=== PATIENT | female | born 1990 | race Caucasian/White ===

== ENCOUNTER 2018-05-01 09:20 | Outpatient (CLI) | payer OTHER ==
[2018-05-01 12:53] LABS: BASOPHILS % (AUTO) 0.4 %; EOSINOPHILS # (AUTO) 0.1 10^3/uL (0.0-0.7); EOSINOPHILS % (AUTO) 1.1 %; HGB - HEMOGLOBIN 13.2 g/dL (12.0-16.0); LYMPHOCYTES # (AUTO) 1.6 10^3/uL (1.5-3.5); LYMPHOCYTES % (AUTO) 22.1 %; MEAN CORPUSCULAR HEMOGLOBIN 31.3 pg (27.0-31.0); MEAN CORPUSCULAR HGB CONC 33.7 g/dL (32.0-36.0); MEAN CORPUSCULAR VOLUME 92.7 fL (81.0-99.0); MEAN PLATELET VOLUME 9.7 fL (7.9-10.8); MONOCYTES # (AUTO) 0.5 10^3/uL (0.0-1.0); MONOCYTES % (AUTO) 6.8 %; NEUTROPHILS # (AUTO) 4.9 10^3/uL (1.5-6.6); NEUTROPHILS % (AUTO) 69.6 %; PLT - PLATELET COUNT 214 10^3/uL (130-450); RED BLOOD COUNT 4.22 10^6/uL (4.20-5.40); RED CELL DISTRIBUTION WIDTH 12.3 % (12.0-15.0); WHITE BLOOD COUNT 7.1 x10^3/uL (4.8-10.8)
[2018-05-01 13:30] LABS: ALBUMIN 4.2 g/dL (3.2-5.5); ALBUMIN/GLOBULIN RATIO 1.4 (1.0-2.2); BILIRUBIN,TOTAL 0.5 mg/dL (0.2-1.0); CALCIUM 9.1 mg/dL (8.5-10.3); CREATININE 0.5 mg/dL (0.4-1.0); MAGNESIUM 1.9 mg/dL (1.7-2.8); PHOSPHORUS 3.7 mg/dL (2.5-4.6); TOTAL PROTEIN 7.2 g/dL (6.7-8.2)
[2018-05-01 13:34] LABS: HB2 TOTAL 14.3 g/dL; HEMOGLOBIN A1C 0.4 g/dL; HEMOGLOBIN A1C % 4.7 % (4.6-6.2)
[2018-05-01 13:39] LABS: THYROID STIMULATING HORMONE 2.07 uIU/mL (0.34-5.60)
[2018-05-01 13:50] LABS: FOLATE 12.95 ng/mL (5.90 - >24.8)
== END 2018-05-01 23:59 ==
LOC: LAB.WCP 09:20
PROVIDERS: ATTEND Physician Assistant
DX: R53.83 Other fatigue (principal); R00.2 Palpitations; Z83.3 Family history of diabetes mellitus
CPT/HCPCS: 36415; 80053; 82607; 82746; 83036; 83735; 84100; 84443; 85025

== ENCOUNTER 2018-06-28 00:15 | Emergency (ER) | payer OTHER ==
[2018-06-28] MEDS ORDERED: ONDANSETRON 4 MG/2 ML VIAL IVP STA (00:32)
[2018-06-28 00:50] LABS: BASOPHILS % (AUTO) 0.1 %; EOSINOPHILS # (AUTO) 0.1 10^3/uL (0.0-0.7); EOSINOPHILS % (AUTO) 1.2 %; HGB - HEMOGLOBIN 13.4 g/dL (12.0-16.0); LYMPHOCYTES % (AUTO) 28.2 %; MEAN CORPUSCULAR HEMOGLOBIN 31.6 pg (27.0-31.0); MEAN CORPUSCULAR HGB CONC 34.5 g/dL (32.0-36.0); MEAN CORPUSCULAR VOLUME 91.5 fL (81.0-99.0); MEAN PLATELET VOLUME 8.3 fL (7.9-10.8); MONOCYTES # (AUTO) 0.6 10^3/uL (0.0-1.0); MONOCYTES % (AUTO) 8.4 %; NEUTROPHILS # (AUTO) 4.4 10^3/uL (1.5-6.6); NEUTROPHILS % (AUTO) 62.1 %; PLT - PLATELET COUNT 191 10^3/uL (130-450); RED BLOOD COUNT 4.26 10^6/uL (4.20-5.40); RED CELL DISTRIBUTION WIDTH 12.7 % (12.0-15.0); WHITE BLOOD COUNT 7.1 x10^3/uL (4.8-10.8)
[2018-06-28 01:02] LABS: ALBUMIN 4.2 g/dL (3.2-5.5); ALBUMIN/GLOBULIN RATIO 1.4 (1.0-2.2); BILIRUBIN,TOTAL 0.5 mg/dL (0.2-1.0); CALCIUM 8.9 mg/dL (8.5-10.3); CREATININE 0.4 mg/dL (0.4-1.0); TOTAL PROTEIN 7.2 g/dL (6.7-8.2)
[2018-06-28 01:09] LABS: BILIRUBIN,URINE NEGATIVE (NEGATIVE); GLUCOSE, URINE (UA) NEGATIVE (NEGATIVE); KETONES,URINE (UA) NEGATIVE (NEGATIVE); LEUKOCYTE ESTERASE, URINE NEGATIVE (NEGATIVE); NITRITE,URINE NEGATIVE (NEGATIVE); OCCULT BLOOD,URINE NEGATIVE (NEGATIVE); PH,URINE 7.5 PH (5.0-7.5); PROTEIN,URINE NEGATIVE (NEGATIVE); UROBILINOGEN,URINE 0.2 (NORMAL) E.U./dL (NORMAL)
[2018-06-28] MEDS ORDERED: HYDROmorphone 2 MG/ML VIAL IVP STA (01:09)
--- NOTE | 2018-06-28 01:10 | ED Physician Documentation ---
PD HPI ABD PAIN - Stated complaint Stated Complaint: ABDOMINAL PAIN - Chief complaint Chief Complaint: Abd Pain - History obtained from History obtained from: Patient, Family - History of Present Illness Timing - onset: Today Timing - details: Abrupt onset, Still present Quality: Aching, Sharp Location: RUQ Worsened by: Eating, Palpation Associated symptoms: No: Fever, Nausea, Vomiting, Diarrhea, Constipation Similar symptoms before: No diagnosis Recently seen: Not recently seen - Additional information Additional information: Patient is a 27 year old female presenting to the emergency department for abdominal pain. patient states that she has had intermittent right upper quadrant pain for the last year, starting during but was never diagnosed with anything. patient states that tonight after eating she developed right upper quadrant pain. patient states that she had been eating healthy but this last week allowed herself to have junk food and tonight had slovak take out for dinner. Review of Systems Ten Systems: 10 systems reviewed and negative Constitutional: denies: Fever, Chills GI: reports: Abdominal Pain, Nausea. 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: No - Immunizations Immunizations are current?: Yes PD ED PE NORMAL - Vitals Vital signs reviewed: Yes - General General: Alert and oriented X 3, Well developed/nourished - HEENT HEENT: Atraumatic - Cardiac Cardiac: RRR - Respiratory Respiratory: No respiratory distress - Abdomen Abdomen: Soft - Derm Derm: Normal color, Warm and dry - Extremities Extremities: No deformity - Neuro Neuro: Alert and oriented X 3 Eye Opening: Spontaneous PD ED PE EXPANDED - General General: Alert, In Pain - Abdomen Abdomen: Tender to palpation, RUQ. No: Rebound, Guarding Results - Vitals Vitals: Vital Signs - 24 hr 06/28/18 06/28/18 00:20 01:16 Temperature 36.2 C L Heart Rate 83 75 Respiratory 20 18 Rate Blood Pressure 148/93 H 142/91 H O2 Saturation 100 98 Oxygen O2 Source Room air - Labs Labs: Laboratory Tests 06/28/18 06/28/18 06/28/18 00:35 00:35 01:05 WBC 7.1 RBC 4.26 Hgb 13.4 Hct 39.0 MCV 91.5 MCH 31.6 H MCHC 34.5 RDW 12.7 Plt Count 191 MPV 8.3 Neut # (Auto) 4.4 Lymph # (Auto) 2.0 [place] # (Auto) 0.6 Eos # (Auto) 0.1 Baso # (Auto) 0.0 Absolute Nucleated RBC 0.00 Nucleated RBC % 0.0 Sodium 139 Potassium 3.5 Chloride 105 Carbon Dioxide 25 Anion Gap 9.0 BUN 9 Creatinine 0.4 Estimated GFR (MDRD) 193 Glucose 112 H Calcium 8.9 Total Bilirubin 0.5 AST 17 ALT 12 Alkaline Phosphatase 46 Total Protein 7.2 Albumin 4.2 Globulin 3.0 Albumin/Globulin Ratio 1.4 Lipase 34 Urine Color YELLOW Urine Clarity CLEAR Urine pH 7.5 Ur Specific [place] 1.020 Urine Protein NEGATIVE Urine Glucose (UA) NEGATIVE Urine Ketones NEGATIVE Urine Occult Blood NEGATIVE Urine Nitrite NEGATIVE Urine Bilirubin NEGATIVE Urine Urobilinogen 0.2 (NORMAL) Ur Leukocyte Esterase NEGATIVE Ur Microscopic Review NOT INDICATED Urine Culture Comments NOT INDICATED Urine HCG, Qual NEGATIVE PD MEDICAL DECISION MAKING - ED course Complexity details: reviewed old records, reviewed results, re-evaluated patient , considered differential, d/w patient, d/w family ED course: Patient was seen and examined at bedside. Patient was made aware that her pain was likely her gallbladder and that the testing would be blood work and ultrasound. patient reported that she did not want the ultrasound at this time unless she had to have it. (patient was there with a young child). Patient did agree to blood work. patient was treated with dilaudid for pain and zofran. Patient's blood work was within normal limits. patient stated that she would follow up with her doctor in the morning. Patient was given detailed discharge and follow up instructions. patient was stable for discharge with outpatient follow up. - Sepsis Event Vital Signs: Vital Signs - 24 hr 06/28/18 06/28/18 00:20 01:16 Temperature 36.2 C L Heart Rate 83 75 Respiratory 20 18 Rate Blood Pressure 148/93 H 142/91 H O2 Saturation 100 98 Oxygen O2 Source Room air Departure - Departure Disposition: 01 Home, Self Care Clinical Impression: Biliary colic Condition: Good Instructions: ED Abdominal Pain Gallstone Poss Follow-Up: Leonard Wilson MD [Provider Admit Priv/Credential] - Prescriptions: Ondansetron Odt [Zofran] 4 mg TL Q6H PRN #14 tablet PRN Reason: Nausea / Vomiting Oxycodone HCl/Acetaminophen [Percocet 5-325 mg Tablet] 1 - 2 each PO Q6H PRN # 10 tablet PRN Reason: pain Ursodiol 300 mg PO TID #30 capsule Comments: Your symptoms today are likely secondary to your gallbladder. the most important thing to do is to change your diet. You should cut out fried foods, fatty foods, fast foods etc. You are being prescribed a medicine that helps to break down stones. You should follow up with your doctor tomorrow for ultrasound and surgical follow up, or you can call the office of Dr. Cherry to schedule a follow up appointment. You should return to the emergency department for fevers, chills, new worsening or uncontrollable symptoms. Discharge Date/Time: 06/28/18 01:58
[2018-06-28 01:14] LABS: CLARITY,URINE CLEAR (CLEAR); HCG UR QUAL NEGATIVE
[2018-06-28 01:17] VITALS: BP 142/91
[2018-06-28] MEDS ORDERED: ONDANSETRON ODT 4 MG Prepack 2 TL STA (01:33)
[2018-06-28] MEDS ORDERED: oxyCODONE/ACET 5/325 Prepack 4 PO STA (01:33)
== END 2018-06-28 01:58 | disposition home or self-care (01) ==
LOC: ED 00:15
DX: K80.50 Calculus of bile duct without cholangitis or cholecystitis without obstruction (principal)
CPT/HCPCS: 36415; 80053; 81001; 81003; 81025; 83690; 85025; 87086; 96374; 96375; 99283; 99284

== ENCOUNTER 2018-06-28 13:35 | Observation (INO) | payer OTHER ==
[2018-06-28] MEDS ORDERED: ONDANSETRON 4 MG/2 ML VIAL IVP STA (15:36)
[2018-06-28] MEDS ORDERED: HYDROmorphone 1 MG/ML CARPUJECT IVP STA ×2 (15:36→16:45)
--- NOTE | 2018-06-28 15:37 | ED Physician Documentation ---
PD HPI ABD PAIN - Stated complaint Stated Complaint: UPPER RT SIDE ABD PX - Chief complaint Chief Complaint: Abd Pain - History obtained from History obtained from: Patient - History of Present Illness Timing - onset: Enter time (am), Yesterday Timing - duration: Days (2) Timing - details: Gradual onset, Still present Quality: Sharp, Pain Location: RUQ Improved by: Laying still, Vomiting, Position, Meds Worsened by: Eating, Moving, Breathing, Position, Palpation Associated symptoms: Nausea, Vomiting. No: Fever Similar symptoms before: Diagnosis (gallbladder pain) Recently seen: Emergency Dept - Additional information Additional information: 27-year-old female has had pain in the right upper quadrant since yesterday morning. She has had these symptoms on and off for the past several years worse after she had become with her child 1 year ago and she has never been diagnosed. She has had intermittent pain that has resolved spontaneously. She began to have pain yesterday morning and this pain has not let up. She was seen in the emergency department at 1:00 in the morning last night and declined formal ultrasound at that time. She did receive medicine for pain and this did help. However she continues to have pain now and has not been able to eat. She has been vomiting and she has experienced some chills. Review of Systems Constitutional: reports: Chills. 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 - Present Medications Home Medications: Ambulatory Orders Medication Instructions Recorded Confirmed Ondansetron Odt [Zofran] 4 mg TL Q6H PRN #14 tablet 06/28/18 Oxycodone HCl/Acetaminophen 1 - 2 each PO Q6H PRN #10 tablet 06/28/18 [Percocet 5-325 mg Tablet] Sertraline [Zoloft] 50 mg PO DAILY 06/28/18 06/28/18 Ursodiol 300 mg PO TID #30 capsule 06/28/18 - Allergies Allergies/Adverse Reactions: Allergies Allergy/AdvReac Type Severity Reaction Status Date / Time No Known Drug Allergies Allergy Verified 06/28/18 13:39 - Social History Does the pt smoke?: No Smoking Status: Never smoker Does the pt drink ETOH?: Yes Does the pt have substance abuse?: No - Immunizations Immunizations are current?: Yes PD ED PE NORMAL - Vitals Vital signs reviewed: Yes (hypertensive ) - General General: Alert and oriented X 3, Well developed/nourished, Other (27 y/o female is on the bed and appears to be in pain ) - HEENT HEENT: Atraumatic, PERRL, EOMI - Neck Neck: Supple, no meningeal sign, No bony TTP - Cardiac Cardiac: RRR, No murmur - Respiratory Respiratory: No respiratory distress, Clear bilaterally - Abdomen Abdomen: Soft, Other (RUQ tenderness to palpation ) - Back Back: No CVA TTP, No spinal TTP - Derm Derm: Normal color, Warm and dry, No rash - Extremities Extremities: No deformity, No edema - Neuro Neuro: Alert and oriented X 3, 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, No motor deficit, No sensory deficit, Normal speech Eye Opening: Spontaneous Motor: Obeys Commands Verbal: Oriented GCS Score: 15 - Psych Psych: Normal mood, Normal affect Results - Vitals Vitals: Vital Signs - 24 hr 06/28/18 06/28/18 13:36 16:36 Temperature 36.4 C L 36.7 C Heart Rate 73 67 Respiratory 20 14 Rate Blood Pressure 146/96 H 124/91 H O2 Saturation 99 100 Oxygen O2 Source Room air - Labs Labs: Laboratory Tests 06/28/18 06/28/18 06/28/18 15:45 15:45 16:53 WBC 12.1 H RBC 4.35 Hgb 13.7 Hct 39.9 MCV 91.7 MCH 31.6 H MCHC 34.4 RDW 13.0 Plt Count 213 MPV 8.7 Neut # (Auto) 9.8 H Lymph # (Auto) 1.3 L [place] # (Auto) 0.9 Eos # (Auto) 0.0 Baso # (Auto) 0.0 Absolute Nucleated RBC 0.00 Nucleated RBC % 0.0 Sodium 134 L Potassium 3.2 L Chloride 99 L Carbon Dioxide 24 Anion Gap 11.0 BUN 7 Creatinine 0.5 Estimated GFR (MDRD) 149 Glucose 118 H Calcium 8.5 Total Bilirubin 0.7 AST 20 ALT 15 Alkaline Phosphatase 48 Total Protein 7.5 Albumin 4.4 Globulin 3.1 Albumin/Globulin Ratio 1.4 Lipase 28 Urine Color YELLOW Urine Clarity CLEAR Urine pH 8.5 H Ur Specific [place] 1.015 Urine Protein 100 H Urine Glucose (UA) NEGATIVE Urine Ketones NEGATIVE Urine Occult Blood NEGATIVE Urine Nitrite NEGATIVE Urine Bilirubin NEGATIVE Urine Urobilinogen 0.2 (NORMAL) Ur Leukocyte Esterase NEGATIVE Urine RBC 0-5 Urine WBC 4-5 Ur Squamous Epith Cells MANY Squamous H Urine Bacteria Many H Urine Mucus Few Strands Ur Microscopic Review INDICATED Urine Culture Comments NOT INDICATED Urine HCG, Qual NEGATIVE - Rads (name of study) abd ultrasound Radiology: Prelim report reviewed (Impression: 1. Multiple cholelithiasis with no wall thickening or dilated ducts. 2 Hepatic steatosis.), EMP read indepedently, See rad report Procedures - Bedside sono Bedside sono by EMP: With use of bedside ultrasound the right upper quadrant is imaged there is an enlarged tender gallbladder with sludge and multiple stones that are shadowing the gallbladder wall is imaged at 0.44 cm there is a trace of free fluid surrounding the anterior wall of the gallbladder. - IVC sono (time) 1530 Bedside IVC sono: IVC measures (cm) (1.19), IVC collapsed c insp (cm) (complete) , Dehydration (est 1 liter deficit) PD MEDICAL DECISION MAKING - ED course Complexity details: reviewed old records, reviewed results, re-evaluated patient , considered differential, d/w patient, d/w family, d/w practice management consultant (Dr. Rohit Patterson is consulted in the case. ) ED course: 27-year-old female with cholecystitis on bedside ultrasound is administered Dilaudid and Zofran intravenously and a formal ultrasound was obtained. She is about 1 L deficient in fluid and IV saline is begun as well. - Sepsis Event Vital Signs: Vital Signs - 24 hr 06/28/18 06/28/18 13:36 16:36 Temperature 36.4 C L 36.7 C Heart Rate 73 67 Respiratory 20 14 Rate Blood Pressure 146/96 H 124/91 H O2 Saturation 99 100 Oxygen O2 Source Room air Departure - Departure Disposition: ED Place in Observation Clinical Impression: Cholecystitis Cholelithiasis Qualifiers: Cholelithiasis location: gallbladder Cholecystitis presence: with cholecystitis Cholecystitis acuity: acute Biliary obstruction: without biliary obstruction Qualified Code(s): K80.00 - Calculus of gallbladder with acute cholecystitis without obstruction Condition: Stable
[2018-06-28 15:54] LABS: BASOPHILS % (AUTO) 0.4 %; EOSINOPHILS % (AUTO) 0.1 %; HGB - HEMOGLOBIN 13.7 g/dL (12.0-16.0); LYMPHOCYTES # (AUTO) 1.3 10^3/uL (1.5-3.5); LYMPHOCYTES % (AUTO) 10.8 %; MEAN CORPUSCULAR HEMOGLOBIN 31.6 pg (27.0-31.0); MEAN CORPUSCULAR HGB CONC 34.4 g/dL (32.0-36.0); MEAN CORPUSCULAR VOLUME 91.7 fL (81.0-99.0); MEAN PLATELET VOLUME 8.7 fL (7.9-10.8); MONOCYTES # (AUTO) 0.9 10^3/uL (0.0-1.0); MONOCYTES % (AUTO) 7.5 %; NEUTROPHILS # (AUTO) 9.8 10^3/uL (1.5-6.6); NEUTROPHILS % (AUTO) 81.2 %; PLT - PLATELET COUNT 213 10^3/uL (130-450); RED BLOOD COUNT 4.35 10^6/uL (4.20-5.40); WHITE BLOOD COUNT 12.1 x10^3/uL (4.8-10.8)
[2018-06-28 16:03] LABS: ALBUMIN 4.4 g/dL (3.2-5.5); ALBUMIN/GLOBULIN RATIO 1.4 (1.0-2.2); BILIRUBIN,TOTAL 0.7 mg/dL (0.2-1.0); CALCIUM 8.5 mg/dL (8.5-10.3); CREATININE 0.5 mg/dL (0.4-1.0); TOTAL PROTEIN 7.5 g/dL (6.7-8.2)
[2018-06-28 17:00] LABS: BILIRUBIN,URINE NEGATIVE (NEGATIVE); GLUCOSE, URINE (UA) NEGATIVE (NEGATIVE); KETONES,URINE (UA) NEGATIVE (NEGATIVE); LEUKOCYTE ESTERASE, URINE NEGATIVE (NEGATIVE); NITRITE,URINE NEGATIVE (NEGATIVE); OCCULT BLOOD,URINE NEGATIVE (NEGATIVE); PH,URINE 8.5 PH (5.0-7.5); PROTEIN,URINE 100 mg/dL (NEGATIVE); UROBILINOGEN,URINE 0.2 (NORMAL) E.U./dL (NORMAL)
[2018-06-28 17:04] LABS: CLARITY,URINE CLEAR (CLEAR); HCG UR QUAL NEGATIVE
[2018-06-28 17:15] LABS: BACTERIA,URINE Many /HPF (None Seen); MUCUS,URINE Few Strands; RBC,URINE 0-5 /HPF (0-5); SQUAMOUS EPITHELIAL CELL,UR MANY Squamous (<= Few)
--- NOTE | 2018-06-28 17:57 | Ultrasound Report ---
Procedure Date: 06/28/2018 Accession Number: [id number] / [id number] Procedure: US - Abdomen Limited CPT Code: FULL RESULT: EXAM: ABDOMEN ULTRASOUND LIMITED, RUQ EXAM DATE: 06/28/2018 05:23 PM. CLINICAL HISTORY: RUQ pain. COMPARISON: None. TECHNIQUE: Real-time scanning was performed with static images obtained. FINDINGS: Liver: Normal in size. Echogenic echotexture. 16.9 cm. Main portal vein flow: Hepatopetal. Gallbladder: Multiple gallstones up to 1.2 cm size. Sludge. No wall thickening or sonographic Thomas's sign. Biliary System: CBD measures 4 mm. No intrahepatic or extrahepatic ductal dilatation. Other: The visualized pancreas and right kidney are unremarkable. No free fluid. IMPRESSION: 1. Multiple cholelithiasis with no wall thickening or dilated ducts. 2. Hepatic steatosis. RADIA
[2018-06-28] MEDS: ONDANSETRON 4 MG/2 ML VIAL IVP STA ×2 (18:34→18:38)
[2018-06-28] MEDS ORDERED: ONDANSETRON 4 MG/2 ML VIAL IVP PRN (19:36)
[2018-06-28] MEDS ORDERED: ACETAMINOPHEN 1,000 MG/100 ML 100 ML IV PRN (19:37)
--- NOTE | 2018-06-28 19:47 | CONSULTATION NOTE ---
Referring Provider Name of Referring Provider:: Dr. Orta Consult Date: 06/28/18 Chief Complaint - Chief Complaint Chief Complaint: abd pain History of Present Illness - Admitted From Admitted From:: ER - History Obtained From Records Reviewed: yes History obtained from: pt, records Exam Limitations: none - History of Present Illness HPI Comment/Other: 27 yo female with approx 48 hr hx of severe sharp steady RUQ pain associated with anorexia, nausea and retching but no fever, chills, change in bowel habits , jaundice, acholic stools. Multiple prior similar but much milder episodes lasting approx one hour over the past 18 months, beginning while . No hx heartburn, PUD, melena, BRBPR, hepatitis/jaundice; neg FH gallbladder disease. She was seen in the ER last night and labs were benign including CBC, CMP and lipase; her sx promptly responded to analgesics so she was discharged home on analgesics and ursodiol only to note prompt recurrence of her sx prompting her to return to the ER this evening. Evaluation with abd US showed multiple gallstones in the gallbladder but nl bile ducts, neg sono Thomas's sign and no gallbladder wall thickening or pericholecystic fluid, although the bedside us by Dr. Orta did show some wall thickening and a small amount of fluid around the gallbladder. Repeat CBC, CMP and lipase are nl. No recent wt changes. 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 - Family & Social History Family History Comment/Other: neg for GB disease Living arrangement: At home Living Situation: With family - Substance History Use: Uses substance without health or social issues: Alcohol (1 drink/day on average) Abuse: Recurrent use of substance despite neg consequences: NONE Dependence: Experiences withdrawal or developed tolerances: NONE - POLST POLST Status: Full Code Meds/Allgy - Home Medications Home Medications: Ambulatory Orders Medication Instructions Recorded Confirmed Ondansetron Odt [Zofran] 4 mg TL Q6H PRN #14 tablet 06/28/18 Oxycodone HCl/Acetaminophen 1 - 2 each PO Q6H PRN #10 tablet 06/28/18 [Percocet 5-325 mg Tablet] Sertraline [Zoloft] 50 mg PO DAILY 06/28/18 06/28/18 Ursodiol 300 mg PO TID #30 capsule 06/28/18 - Allergies Allergies/Adverse Reactions: Allergies Allergy/AdvReac Type Severity Reaction Status Date / Time No Known Drug Allergies Allergy Verified 06/28/18 13:39 Review of Systems - Constitutional Constitutional: denies: Fever, Chills, Weight gain, Weight loss - Cardiovascular Cariovascular: denies: Chest pain - Respiratory Respiratory: denies: Cough - Gastrointestinal Gastrointestinal: reports: Abdominal pain, Nausea, Vomiting, Bloating, Poor appetite. denies: Constipation, Diarrhea, Change in bowel habits, Rectal bleeding, Black stools, Bloody stools, Coffee grounds emesis, Reflux/heartburn - Genitourinary Genitourinary: denies: Dysuria - Psychiatric Psychiatric: reports: Anxiety - Hematologic/Lymphatic Hematologic/Lymphatic: denies: Blood clots, Bleeding tendencies - All Other Systems All Other Systems: reports: Reviewed and negative Exam - Vital Signs Reviewed Vital Signs: Yes Vital Signs: Vital Signs x48h Temp Pulse Resp BP Pulse Ox 06/28/18 18:42 36.2 C L 65 18 134/84 H 99 06/28/18 16:36 36.7 C 67 14 124/91 H 100 06/28/18 13:36 36.4 C L 73 20 146/96 H 99 - Physical Exam General Appearance: positive: Alert, Mild distress Eyes Bilateral: positive: Conjunctivae nml, No scleral icterus ENT: positive: ENT inspection nml, Pharynx nml, No signs of dehydration Neck: positive: Nml inspection, No JVD. negative: Lymphadenopathy (R), Lymphadenopathy (L) Respiratory: positive: Chest non-tender, No respiratory distress, Breath sounds nml Cardiovascular: positive: Regular rate & rhythm, No murmur, No gallop Peripheral Pulses: positive: 2+ Abdomen: positive: No organomegaly, Nml bowel sounds, No distention, Tenderness (RUQ tenderness with voluntary guarding, neg Thomas's sign; no generalized peritoneal signs) Back: positive: Nml inspection. negative: CVA tenderness (R), CVA tenderness (L ) Skin: positive: Color nml, No rash, Warm, Dry. negative: Cyanosis Extremities: positive: Non-tender, No pedal edema. negative: Calf tenderness Neurologic/Psychiatric: positive: Oriented x3 Conclusion/Plan - Diagnosis Diagnosis: Subacute calculous cholecystitis - Plan Plan: Pt will be admitted to observation status, kept NPO, started on IV antibiotics, analgesics, antiemetics and scheduled for lap loi for tomorrow. PAR conf with pt and consent obtained. - Lab Results Lab results reviewed: Yes Fish Bones: 06/28/18 15:45 06/28/18 15:45 Other Lab Results: lfts, lipase nl. UA neg - Diagnostic Imaging Results Diagnostic Imaging Results: positive: Final report reviewed Diagnostic Imaging Results Comments: see HPI
[2018-06-28] MEDS ORDERED: LACTATED RINGERS 1,000 ML IV SCH (20:00)
[2018-06-28] MEDS: KETOROLAC 30 MG/ML VIAL IVP PRN (20:44)
[2018-06-28] MEDS: SODIUM CHLORIDE FLUSH 0.9% 10 ML SYRINGE IVP SCH (20:44)
[2018-06-28] MEDS: PIPERACILLIN/TAZOBACTAM 3.375 GM in SODIUM CHLORIDE 0.9% MINIBAG 100 ML IV SCH (20:53)
[2018-06-29] MEDS: PIPERACILLIN/TAZOBACTAM 3.375 GM in SODIUM CHLORIDE 0.9% MINIBAG 100 ML IV SCH ×3 (02:57→18:46)
[2018-06-29] MEDS: SODIUM CHLORIDE FLUSH 0.9% 10 ML SYRINGE IVP PRN ×3 (02:58→03:38)
[2018-06-29] MEDS: KETOROLAC 30 MG/ML VIAL IVP PRN ×3 (03:34→21:17)
[2018-06-29 06:03] LABS: BASOPHILS % (AUTO) 0.2 %; EOSINOPHILS # (AUTO) 0.1 10^3/uL (0.0-0.7); EOSINOPHILS % (AUTO) 1.6 %; HGB - HEMOGLOBIN 12.6 g/dL (12.0-16.0); MEAN CORPUSCULAR HEMOGLOBIN 31.5 pg (27.0-31.0); MEAN CORPUSCULAR HGB CONC 34.1 g/dL (32.0-36.0); MEAN CORPUSCULAR VOLUME 92.4 fL (81.0-99.0); MEAN PLATELET VOLUME 8.6 fL (7.9-10.8); MONOCYTES # (AUTO) 0.6 10^3/uL (0.0-1.0); MONOCYTES % (AUTO) 8.9 %; NEUTROPHILS # (AUTO) 4.3 10^3/uL (1.5-6.6); NEUTROPHILS % (AUTO) 61.3 %; PLT - PLATELET COUNT 174 10^3/uL (130-450); RED BLOOD COUNT 3.98 10^6/uL (4.20-5.40); RED CELL DISTRIBUTION WIDTH 12.6 % (12.0-15.0)
[2018-06-29 06:12] LABS: ALBUMIN 3.5 g/dL (3.2-5.5); ALBUMIN/GLOBULIN RATIO 1.4 (1.0-2.2); BILIRUBIN,TOTAL 0.7 mg/dL (0.2-1.0); CREATININE 0.5 mg/dL (0.4-1.0)
[2018-06-29] MEDS ORDERED: POTASSIUM CHLOR 10 MEQ/100 ML 10 MEQ/100 ML BAG IV ONE (07:00)
[2018-06-29] MEDS: SODIUM CHLORIDE FLUSH 0.9% 10 ML SYRINGE IVP SCH ×2 (07:27→18:03)
[2018-06-29] MEDS: NS W/20 MEQ KCL 1,000 ML IV SCH ×2 (07:57→18:02)
[2018-06-29] MEDS ORDERED: BUPIVACAINE 0.5%-EPI 1:200000 PF 30 ML VIAL ONE ×2 (08:14→13:11)
--- NOTE | 2018-06-29 09:33 | PROVIDER PROGRESS NOTE ---
Assessment/Plan - Problem List (1) Cholecystitis Assessment/Plan: Clinically stable; persistent pain suggests ongoing inflammation. Plan:lap loi today. (2) Hypokalemia due to loss of potassium Assessment/Plan: due to N/V; will replace. - Current Meds Current Meds: Current Medications Generic Name Dose Route Start Last Admin Trade Name Freq PRN Reason Stop Dose Admin Acetaminophen 100 mls @ 400 mls/hr 06/28/18 19:37 06/28/18 23:24 Ofirmev IV Infused Q6HR PRN Infusion PAIN Piperacillin Sod/Tazobactam 100 mls @ 200 mls/hr 06/28/18 20:00 06/29/18 03: 29 Sod 3.375 gm/ Sodium Chloride IV Infused Q6H THERON Infusion Potassium Chloride/Sodium Chloride 1,000 mls @ 100 mls/hr 06/29/18 07:00 07:57 Normal Saline 0.9% W/20 Meq Kcl IV 100 mls/hr .Q10H THERON Administration Ketorolac Tromethamine 30 mg 06/28/18 19:35 06/29/18 03:34 Toradol Inj (30mg) IVP 07/03/18 19:34 30 mg Q6HR PRN Administration PAIN Sodium Chloride 10 ml 06/29/18 01:00 06/29/18 07:27 Normal Saline Flush 0.9% IVP Not Given 0100,0900,1700 THERON Sodium Chloride 10 ml 06/28/18 19:32 06/29/18 03:38 Normal Saline Flush 0.9% IVP 10 ml PRN PRN Administration NEEDED PER PROVIDER ORDERS - Lab Result Lab results reviewed: Yes Fish Bone Diagrams: 06/29/18 05:55 06/29/18 05:55 Other Lab Results: lfts nl - Additional Planning Condition/Complexity: Stable My Orders: My Active Orders 06/28/18 19:35 Ketorolac Inj (30Mg) [Toradol Inj (30Mg)] 30 mg IVP Q6HR PRN 06/28/18 19:36 Ondansetron Inj [Zofran Inj] 4 mg IVP Q6HR PRN 06/28/18 19:37 Acetaminophen 1,000 mg/100 ml [Ofirmev] 100 ml IV Q6HR 06/28/18 20:00 Piperacillin/Tazobactam [Zosyn] 3.375 gm Sodium Chloride 0.9% Minibag [Normal Saline 0.9% Minibag] 100 ml IV Q6H 06/29/18 07:00 Ns W/20 Meq KCl [Normal Saline 0.9% W/20 Meq KCl] 1,000 ml IV 100 mls/hr 06/29/18 10:00 POTASSIUM [CHEM] Timed Subjective - Subjective Patient Reports: Abdominal Pain (persistent, RUQ, somewhat improved compared to yesterday; no further vomiting; good pain control with non narcotic analgesics) Objective Vital Signs: Vital Signs - 24 hr 06/28/18 06/29/18 06/29/18 20:16 00:06 05:00 Temperature 36.4 C L 36.4 C L 37.1 C Heart Rate [ 62 74 Brachial] Heart Rate [ 62 Radial] Respiratory 18 18 16 Rate Blood Pressure 132/79 H 115/71 105/56 L [Right Brachial artery] O2 Saturation 100 100 100 06/29/18 07:46 Temperature 36.8 C Heart Rate [ 61 Brachial] Heart Rate [ Radial] Respiratory 16 Rate Blood Pressure 101/54 L [Right Brachial artery] O2 Saturation 99 Oxygen O2 Source Room air I&O (Last 24 Hrs): Intake and Output Totals x24h 06/27/18 06/28/18 06/29/18 23:59 23:59 23:59 Intake Total 500 1200 Output Total 220 Balance 500 980 General: Alert, Oriented x3, Cooperative, Mild distress HEENT: Mucous membr. moist/pink Neuro: Alert Abdomen: Soft, Other (mild RUQ tenderness with voluntary guarding) Extremities: No edema, No tenderness/swelling - Results Results: Laboratory Results WBC 7.0 x10^3/uL (4.8-10.8) 06/29/18 05:55 RBC 3.98 10^6/uL (4.20-5.40) L 06/29/18 05:55 Hgb 12.6 g/dL (12.0-16.0) 06/29/18 05:55 Hct 36.8 % (37.0-47.0) L 06/29/18 05:55 MCV 92.4 fL (81.0-99.0) 06/29/18 05:55 MCH 31.5 pg (27.0-31.0) H 08/23/18 05:55 MCHC 34.1 g/dL (32.0-36.0) 06/29/18 05:55 RDW 12.6 % (12.0-15.0) 06/29/18 05:55 Plt Count 174 10^3/uL (130-450) 06/29/18 05:55 MPV 8.6 fL (7.9-10.8) 06/29/18 05:55 Neut # (Auto) 4.3 10^3/uL (1.5-6.6) 06/29/18 05:55 Lymph # (Auto) 2.0 10^3/uL (1.5-3.5) 06/29/18 05:55 [place] # (Auto) 0.6 10^3/uL (0.0-1.0) 06/29/18 05:55 Eos # (Auto) 0.1 10^3/uL (0.0-0.7) 06/29/18 05:55 Baso # (Auto) 0.0 10^3/uL (0.0-0.1) 06/29/18 05:55 Absolute Nucleated RBC 0.01 x10^3/uL 06/29/18 05:55 Nucleated RBC % 0.1 /100WBC 06/29/18 05:55 Sodium 134 mmol/L (135-145) L 06/29/18 05:55 Potassium 2.6 mmol/L (3.5-5.0) L 06/29/18 05:55 Chloride 99 mmol/L (101-111) L 06/29/18 05:55 Carbon Dioxide 26 mmol/L (21-32) 06/29/18 05:55 Anion Gap 9.0 (6-13) 06/29/18 05:55 BUN 8 mg/dL (6-20) 06/29/18 05:55 Creatinine 0.5 mg/dL (0.4-1.0) 06/29/18 05:55 Estimated GFR (MDRD) 149 (>89) 06/29/18 05:55 Glucose 109 mg/dL (70-100) H 06/29/18 05:55 Calcium 8.0 mg/dL (8.5-10.3) L 06/29/18 05:55 Total Bilirubin 0.7 mg/dL (0.2-1.0) 06/29/18 05:55 AST 18 IU/L (10-42) 06/29/18 05:55 ALT 12 IU/L (10-60) 06/29/18 05:55 Alkaline Phosphatase 40 IU/L (42-121) L 06/29/18 05:55 Total Protein 6.0 g/dL (6.7-8.2) L 06/29/18 05:55 Albumin 3.5 g/dL (3.2-5.5) 06/29/18 05:55 Globulin 2.5 g/dL (2.1-4.2) 06/29/18 05:55 Albumin/Globulin Ratio 1.4 (1.0-2.2) 06/29/18 05:55 Lipase 28 U/L (22-51) 06/28/18 15:45 Urine Color YELLOW 06/28/18 16:53 Urine Clarity CLEAR (CLEAR) 06/28/18 16:53 Urine pH 8.5 PH (5.0-7.5) H 06/28/18 16:53 Ur Specific [place] 1.015 (1.002-1.030) 06/28/18 16:53 Urine Protein 100 mg/dL (NEGATIVE) H 06/28/18 16:53 Urine Glucose (UA) NEGATIVE mg/dL (NEGATIVE) 06/28/18 16:53 Urine Ketones NEGATIVE mg/dL (NEGATIVE) 06/28/18 16:53 Urine Occult Blood NEGATIVE (NEGATIVE) 06/28/18 16:53 Urine Nitrite NEGATIVE (NEGATIVE) 06/28/18 16:53 Urine Bilirubin NEGATIVE (NEGATIVE) 06/28/18 16:53 Urine Urobilinogen 0.2 (NORMAL) E.U./dL (NORMAL) 06/28/18 16:53 Ur Leukocyte Esterase NEGATIVE (NEGATIVE) 06/28/18 16:53 Urine RBC 0-5 /HPF (0-5) 06/28/18 16:53 Urine WBC 4-5 /HPF (0-5) 06/28/18 16:53 Ur Squamous Epith Cells MANY Squamous (<= Few) H 06/28/18 16:53 Urine Bacteria Many /HPF (None Seen) H 06/28/18 16:53 Urine Mucus Few Strands 08/22/18 16:53 Ur Microscopic Review INDICATED 06/28/18 16:53 Urine Culture Comments NOT INDICATED 06/28/18 16:53 Urine HCG, Qual NEGATIVE 06/28/18 16:53 ABX Reporting Has patient been on IV antibiotics over the past 48 hours?: No
--- NOTE | 2018-06-29 11:37 | ANESTHESIA ---
Pre-Anesthesia VS, & Labs - Diagnosis Diagnosis Subacute calculous cholecystitis - Procedure Lap loi Vital Signs: Temp Pulse Resp BP Pulse Ox 36.8 C 61 16 101/54 L 99 06/29/18 07:46 06/29/18 07:46 06/29/18 07:46 06/29/18 07:46 06/29/18 07:46 Height 5 ft 9 in Weight (kg) 98 kg Body Mass Index 31.8 - Is Patient ?: No - Lab Results Lab results reviewed: Yes Fish Bones: 06/29/18 05:55 06/29/18 10:00 Home Medications and Allergies Home Medications: Ambulatory Orders Medication Instructions Recorded Confirmed Ondansetron Odt [Zofran] 4 mg TL Q6H PRN #14 tablet 06/28/18 Oxycodone HCl/Acetaminophen 1 - 2 each PO Q6H PRN #10 tablet 06/28/18 [Percocet 5-325 mg Tablet] Sertraline [Zoloft] 50 mg PO DAILY 06/28/18 06/28/18 Ursodiol 300 mg PO TID #30 capsule 06/28/18 Allergies/Adverse Reactions: Allergies Allergy/AdvReac Type Severity Reaction Status Date / Time No Known Drug Allergies Allergy Verified 06/28/18 13:39 Anes History & Medical History - Medical History Cardiovascular: reports: None Pulmonary: reports: None Gastrointestinal: reports: Other Urinary: reports: None Neuro: reports: None Musculoskeletal: reports: None Endocrine/Autoimmune: reports: None Blood Disorders: reports: None Skin: reports: Herpes zoster, Other Smoking Status: Former smoker - Surgical History Gynecologic: section Results - Other Diagnostic Imaging Results Diagnostic Imaging Results: Report reviewed (abd U/S) Exam General: Alert Dental: WNL, TMJ Mouth Opening: Greater than 4 Fingerbreadths Neck Mobility: Normal Mallampati classification: I Thyromental Distance: greater than 6 cm Respiratory: Lungs clear Cardiovascular: Regular rate Cognitive Status: Within normal limits Plan Anesthesia Type: General Consent for Procedure(s) Verified and Reviewed: Yes Code Status: Attempt Resuscitation ASA classification: 1-Healthy patient Is this case an emergency?: Yes
[2018-06-29] MEDS ORDERED: LIDOCAINE-MPF 2% 5 ML VIAL IM ONE (15:00)
[2018-06-29] MEDS ORDERED: DEXAMETHASONE 4 MG/ML VIAL IVP ONE (15:00)
[2018-06-29] MEDS ORDERED: ONDANSETRON 4 MG/2 ML VIAL IVP ONE (15:00)
[2018-06-29] MEDS ORDERED: NEOSTIGMINE 1 MG/1 ML 10 ML MDV IVP ONE (15:00)
[2018-06-29] MEDS ORDERED: GLYCOPYRROLATE 1 MG/5 ML VIAL IVP ONE (15:00)
[2018-06-29] MEDS ORDERED: PROPOFOL 200 MG/20 ML VIAL IVP ONE (15:00)
[2018-06-29] MEDS ORDERED: ROCURONIUM 50 MG/5 ML VIAL IVP ONE (15:00)
[2018-06-29] MEDS ORDERED: fentaNYL 250 MCG/5 ML VIAL IVP ONE (15:00)
[2018-06-29] MEDS ORDERED: MIDAZOLAM 2 MG/2 ML VIAL IVP ONE (15:00)
[2018-06-29] MEDS ORDERED: BUPIVACAINE 0.5%-EPI 1:200000 PF 30 ML VIAL SUBQ ONE ×2 (15:18)
[2018-06-29] MEDS ORDERED: LACTATED RINGERS 1,000 ML IV ONE (15:19)
--- NOTE | 2018-06-29 16:52 | OPERATIVE REPORT ---
Operative Report - General Admit Date: 06/28/18 Procedure Date: 06/29/18 Planned Procedure: Laparoscopic cholecystectomy Pre-Op Diagnosis: Acute calculous cholecystitis Procedure Performed: Laparoscopic cholecystectomy Post Op Diagnosis: Acute calculous cholecystitis - Procedure Note Primary Surgeon: Rohit Patterson MD FACS Secondary Surgeon: none Anesthesia Provider: Gideon Solano CRNA Anesthesia Technique: General ET tube Pathology: Gallbladder and stones IV Fluids (mL): 1,000 Estimated Blood Loss (mL): 100 Complications: None - Other Other Information/Narrative: markedly enlarged, edematous, inflamed gallbladder with multiple large mixed cholesterol stones; cystic duct was of nl caliber.
[2018-06-29] MEDS ORDERED: KETOROLAC 30 MG/ML VIAL IVP PRN (16:53)
[2018-06-29] MEDS: oxyCODONE 5 MG TABLET PO PRN (22:43)
[2018-06-30] MEDS: SODIUM CHLORIDE FLUSH 0.9% 10 ML SYRINGE IVP SCH ×2 (00:47→09:23)
--- NOTE | 2018-06-30 01:48 | OPERATIVE REPORT ---
DATE OF SERVICE: 06/29/2018 Physician: Rohit Patterson MD PREOPERATIVE DIAGNOSIS: Acute calculous cholecystitis. POSTOPERATIVE DIAGNOSIS: Acute calculous cholecystitis. PROCEDURE PERFORMED: Laparoscopic cholecystectomy. ANESTHESIA: General endotracheal by Tomy Solano CRNA SURGEON: Rohit Patterson MD ESTIMATED BLOOD LOSS: 100 mL. COMPLICATIONS: None. FINDINGS: Laparoscopy revealed a markedly enlarged, dilated edematous thick walled and inflamed gall bladder with pericholecystic edema, fluid and adhesions. The cystic duct was of normal caliber. The liver, stomach and visualized portion of small and large bowel were within normal limits. Marked ed zo was present in the cystic triangle of Calot as well. Following resection, the gallbladder was se en to contain clear green, yellow bile and numerous 1-2 cm diameter, round and multifaceted mixed cho lesterol type stones. INDICATIONS: The patient is a 27-year-old woman with an approximately 48-hour history of right upper quadrant pain, nausea and vomiting associated with right upper quadrant tenderness and mildly elevat ed white count, normal liver function tests and lipase and ultrasonography showing cholelithiasis, bu t no gallbladder wall thickening, pericholecystic fluid or signs sonographically of acute cholecystit is. She was clinically thought to be suffering from subacute calculous cholecystitis and advised to undergo laparoscopic cholecystectomy. TECHNIQUE: After informed consent, the patient was taken to the operating room where she was placed under general endotracheal anesthesia. Preoperative preparation included therapeutic administration of Zosyn intravenously preoperatively as well as application of sequential calf compression boots. H er abdomen was prepared with ChloraPrep solution and draped in the usual sterile fashion. Transverse incision made along the inferior edge of the umbilicus and carried down through the layers of the ab dominal wall until the peritoneum was identified and entered sharply. Hemostasis with electrocautery . A 10-mm Panchito cannula was inserted and pneumoperitoneum was achieved with carbon dioxide. A 10-m m Francoise 0-degree telescope was inserted. Laparoscopy was carried out with findings were as noted a migue. Three additional 5-mm ports were placed in the right upper quadrant. The gallbladder was nohemi edly dilated and tense and so was aspirated of approximately 100 mL of clear green, yellow bile, whic h allowed the gallbladder to be grasped and retracted in a cephalad and lateral direction. The cysti c triangle of Calot was exposed and carefully dissected using the hook electrode and electrocautery. The cystic artery was seen to be small and branch prior to entry to the gallbladder and was ligated and divided with electrocautery. Cystic duct was isolated at its junction with the gallbladder and a fter the critical view of safety had been obtained, the cystic duct was triply clipped distally, doub ly proximally, and divided between. The gallbladder was dissected from the liver bed with some diffi culty due to a large intrahepatic component; however, eventually the gallbladder was able to be detac hed intact from the liver bed, placed in an organ retrieval bag, extracted from the umbilical port si te, opened on the side table with findings as noted above. The tissue was then sent for pathologic e valuation. After hemostasis was assured, the right upper quadrant was copiously irrigated with salin e solution, following which the instruments and cannulas were removed under direct vision. Pneumoper itoneum was allowed to escape and the incisions were closed in layers using continuous 0 Vicryl to re approximate the midline fascia at the umbilicus, followed by 4-0 Monocryl subcuticular skin closure a t all the port sites, followed by Dermabond. A total of 30 mL of 0.5% Marcaine with epinephrine was infiltrated into the incision to assist in postoperative analgesia. Anesthesia terminated and the pa tient transferred to the recovery room in satisfactory condition. Sponge and needle counts were zoila ect x2 and no drains were used. TD: 06/29/2018 17:15
[2018-06-30] MEDS: SODIUM CHLORIDE FLUSH 0.9% 10 ML SYRINGE IVP PRN ×2 (03:22→03:30)
[2018-06-30] MEDS: KETOROLAC 30 MG/ML VIAL IVP PRN (03:22)
[2018-06-30] MEDS: oxyCODONE 5 MG TABLET PO PRN ×2 (05:01→09:21)
[2018-06-30] MEDS: PIPERACILLIN/TAZOBACTAM 3.375 GM in SODIUM CHLORIDE 0.9% MINIBAG 100 ML IV SCH ×3 (05:37)
[2018-06-30] MEDS: NS W/20 MEQ KCL 1,000 ML IV SCH (05:37)
[2018-06-30 06:32] LABS: BASOPHILS % (AUTO) 0.3 %; EOSINOPHILS % (AUTO) 0.4 %; LYMPHOCYTES # (AUTO) 1.7 10^3/uL (1.5-3.5); LYMPHOCYTES % (AUTO) 21.9 %; MEAN CORPUSCULAR HGB CONC 33.9 g/dL (32.0-36.0); MEAN CORPUSCULAR VOLUME 94.7 fL (81.0-99.0); MEAN PLATELET VOLUME 8.9 fL (7.9-10.8); MONOCYTES # (AUTO) 0.6 10^3/uL (0.0-1.0); MONOCYTES % (AUTO) 7.4 %; NEUTROPHILS # (AUTO) 5.4 10^3/uL (1.5-6.6); PLT - PLATELET COUNT 194 10^3/uL (130-450); RED BLOOD COUNT 3.75 10^6/uL (4.20-5.40); RED CELL DISTRIBUTION WIDTH 13.1 % (12.0-15.0); WHITE BLOOD COUNT 7.7 x10^3/uL (4.8-10.8)
[2018-06-30 06:44] LABS: ALBUMIN 3.2 g/dL (3.2-5.5); ALBUMIN/GLOBULIN RATIO 1.2 (1.0-2.2); BILIRUBIN,TOTAL 0.7 mg/dL (0.2-1.0); CALCIUM 7.9 mg/dL (8.5-10.3); CREATININE 0.5 mg/dL (0.4-1.0); TOTAL PROTEIN 5.9 g/dL (6.7-8.2)
--- NOTE | 2018-06-30 08:44 | PROVIDER PROGRESS NOTE ---
Subjective - General Admit Date: 06/28/18 Procedure Date: 06/29/18 Post Op Days: 1 Procedure Performed: lap cholecystectomy - Review of Systems Wound/Incisions: positive: Healing well, No drainage General: positive: No symptoms Pulmonary: positive: No symptoms Cardiovascular: positive: No symptoms Gastrointestinal: positive: Abdominal pain (expected incisional discomfort), Flatus. negative: Nausea, Vomiting, Difficulty swallowing Genitourinary: positive: No symptoms Musculoskeletal: positive: No symptoms Objective - Patient Data Reviewed Vital Signs: Yes Vital Signs: Vital Signs x48h Temp Pulse Resp BP Pulse Ox 06/30/18 07:38 36.7 C 61 16 106/62 98 06/30/18 03:03 36.9 C 63 16 105/58 L 98 Weight: Weight 06/28/18 06/29/18 06/30/18 23:59 23:59 23:59 Weight (kg) 98 kg Intake & Output: Intake and Output Totals x24h 06/28/18 06/29/18 06/30/18 23:59 23:59 23:59 Intake Total 500 2063.333 1675.000 Output Total 1695 850 Balance 500 368.333 825.000 - Lab Results Lab Results: 06/30/18 05:52 06/30/18 05:52 Other Lab Results: Lab Results x24hrs 06/30/18 06/30/18 06/29/18 Range/Units 05:52 05:52 10:00 WBC 7.7 (4.8-10.8) x10^3/uL RBC 3.75 L (4.20-5.40) 10^6/uL Hgb 12.0 (12.0-16.0) g/dL Hct 35.5 L (37.0-47.0) % MCV 94.7 (81.0-99.0) fL MCH 32.0 H (27.0-31.0) pg MCHC 33.9 (32.0-36.0) g/dL RDW 13.1 (12.0-15.0) % Plt Count 194 (130-450) 10^3/uL MPV 8.9 (7.9-10.8) fL Neut # (Auto) 5.4 (1.5-6.6) 10^3/uL Lymph # (Auto) 1.7 (1.5-3.5) 10^3/uL [place] # (Auto) 0.6 (0.0-1.0) 10^3/uL Eos # (Auto) 0.0 (0.0-0.7) 10^3/uL Baso # (Auto) 0.0 (0.0-0.1) 10^3/uL Absolute Nucleated RBC 0.00 x10^3/uL Nucleated RBC % 0.0 /100WBC Sodium 137 (135-145) mmol/L Potassium 3.1 L 3.3 L (3.5-5.0) mmol/L Chloride 107 (101-111) mmol/L Carbon Dioxide 24 (21-32) mmol/L Anion Gap 6.0 (6-13) BUN 7 (6-20) mg/dL Creatinine 0.5 (0.4-1.0) mg/dL Estimated GFR (MDRD) 149 (>89) Glucose 102 H (70-100) mg/dL Calcium 7.9 L (8.5-10.3) mg/dL Total Bilirubin 0.7 (0.2-1.0) mg/dL AST 43 H (10-42) IU/L ALT 24 (10-60) IU/L Alkaline Phosphatase 37 L (42-121) IU/L Total Protein 5.9 L (6.7-8.2) g/dL Albumin 3.2 (3.2-5.5) g/dL Globulin 2.7 (2.1-4.2) g/dL Albumin/Globulin Ratio 1.2 (1.0-2.2) - Current Medications Current Medications: Current Medications Generic Name Dose Route Start Last Admin Trade Name Freq PRN Reason Stop Dose Admin Acetaminophen 100 mls @ 400 mls/hr 06/28/18 19:37 06/28/18 23:24 Ofirmev IV Infused Q6HR PRN Infusion PAIN Piperacillin Sod/Tazobactam 100 mls @ 200 mls/hr 06/28/18 20:00 06/30/18 06: 10 Sod 3.375 gm/ Sodium Chloride IV Infused Q6H THERON Infusion Potassium Chloride/Sodium Chloride 1,000 mls @ 100 mls/hr 06/29/18 07:00 05:37 Normal Saline 0.9% W/20 Meq Kcl IV 100 mls/hr .Q10H THERON Administration Ketorolac Tromethamine 30 mg 06/28/18 19:35 06/30/18 03:22 Toradol Inj (30mg) IVP 07/03/18 19:34 30 mg Q6HR PRN Administration PAIN Oxycodone HCl 5 mg 06/29/18 16:53 06/30/18 05:01 Roxicodone PO 5 mg Q4HR PRN Administration PAIN Sodium Chloride 10 ml 06/29/18 17:00 06/30/18 00:47 Normal Saline Flush 0.9% IVP Not Given 0100,0900,1700 THERON Sodium Chloride 10 ml 06/29/18 16:53 06/30/18 03:30 Normal Saline Flush 0.9% IVP 10 ml PRN PRN Administration NEEDED PER PROVIDER ORDERS - Physical Exam Wound/Incisions: positive: Healing well, No drainage General Appearance: positive: No acute distress, Alert Eyes Bilateral: positive: Normal inspection ENT: positive: ENT inspection nml Abdomen: positive: Nml bowel sounds, No distention, Tenderness (mild periincisional tenderness) ABX Reporting Has patient been on IV antibiotics over the past 48 hours?: No Impression/Plan - Problem List Problem List: Acute cholecystitis, clinically doing well PO day 1; plan: d/c home; usual precautions, RTO 1 week. Hypokalemia, due to N/V, resolving; rec: resume regular diet; should resolve over time.,
[2018-06-30] MEDS ORDERED: SERTRALINE 25 MG TABLET PO SCH (09:00)
[2018-06-30 09:34] VITALS: BP 109/58
--- NOTE | 2018-07-06 07:21 | Discharge Plan ---
Discharge Plan Disposition: Home, Self Care Condition: Stable Prescriptions: Acetaminophen 650 mg PO Q6H PRN #30 tablet PRN Reason: Abdominal Pain Ibuprofen 600 mg PO Q6H PRN #30 tablet PRN Reason: Abdominal Pain oxyCODONE [Roxicodone] 5 mg PO Q6H PRN #10 tablet PRN Reason: Abdominal Pain Diet: Regular Activity Restrictions: no lifting greater than 10 lbs x 1 week; ambulation as tolerated Shower Restrictions: No Driving Restrictions: Yes (while using narcotics) Weight Bearing: Full Weight Instruction Topics: Ibuprofen tablets and capsules, Acetaminophen Oral tablet extended-release, Oxycodone tablets or capsules, Cholecystectomy Laparoscopic Dc No Smoking: If you smoke, Please STOP! Call for help. Follow-up with: Jennifer Cespedes PA [Primary Care Provider] - 2 Weeks
--- NOTE | 2018-07-06 07:26 | DISCHARGE SUMMARY ---
"Discharge Summary Admit Date: 06/28/18 Discharge Date: 06/30/18 Discharging Provider: Dr. Rohit Patterson Primary Care Provider: Dr. Cespedes Code Status: Attempt Resuscitation Condition at Discharge: Stable Discharge Disposition: 01 Home, Self Care Discharge Facility Name: [facility] - DIAGNOSES Admission Diagnoses: Acute calculous cholecystitis Discharge Diagnoses with Status of Each Condition: Acute calculous cholecystitis, resolved - HPI History of Present Illness: See dictated surgical consultation by Dr. Patterson - CONSULTS | PROCEDURES Procedures: Laparoscopic cholecystectomy on 06/29/2018 - HOSPITAL COURSE Hospital Course: Uncomplicated. Pt remained afebrile, with stable vital signs, and resumed normal diet and gi tract function postoperatively. She was noted to have hypokalemia on admission and this was treated with potassium supplements, and thought due to preop N/V. - ALLERGIES Allergies/Adverse Reactions: Allergies Allergy/AdvReac Type Severity Reaction Status Date / Time No Known Drug Allergies Allergy Verified 06/28/18 13:39 - MEDICATIONS Home Medications: Ambulatory Orders Medication Instructions Recorded Confirmed Sertraline [Zoloft] 25 mg PO DAILY 06/29/18 06/29/18 Acetaminophen 650 mg PO Q6H PRN #30 tablet 06/30/18 Ibuprofen 600 mg PO Q6H PRN #30 tablet 06/30/18 oxyCODONE [Roxicodone] 5 mg PO Q6H PRN #10 tablet 06/30/18 - PHYSICAL EXAM AT DISCHARGE General Appearance: positive: No acute distress, Alert Eyes Bilateral: positive: No scleral icterus ENT: positive: ENT inspection nml, Pharynx nml, No signs of dehydration Respiratory: positive: Chest non-tender, No respiratory distress Abdomen: positive: No distention, Tenderness (minimal incisional; incisions are healing well) Extremities: positive: Non-tender, No pedal edema. negative: Calf tenderness Neurologic/Psychiatric: positive: Oriented x3 - LABS Result Diagrams: 06/30/18 05:52 06/30/18 05:52 - FOLLOW UP Follow Up: With Dr. Patterson in 7-10 days; PCP in 2 weeks - TIME SPENT Time Spent in Discharge (Minutes): 30"
== END 2018-06-30 10:12 | disposition home or self-care (01) ==
LOC: ED 13:35 → MS2 19:32
PROVIDERS: ADMIT Internal Medicine Gastroenterology; ATTEND Internal Medicine Gastroenterology
PROC: 0FT44ZZ Resection of Gallbladder, Percutaneous Endoscopic Approach (ICD-10-PCS; principal; 2018-06-28)
DX: K80.00 Calculus of gallbladder with acute cholecystitis without obstruction (principal); E86.0 Dehydration; E87.6 Hypokalemia
CPT/HCPCS: 36415; 47562; 76705; 80053; 81001; 81003; 81025; 83690; 84132; 85025; 88304; 96361; 96365; 96366; 96367; 96375; 96376; 99283; 99284; A9270; G0378; J0131; J1170; J3010; J7120; 87086; 96374

== ENCOUNTER 2019-04-09 14:34 | Outpatient (CLI) | payer OTHER | END 2019-04-09 14:35 | disposition home or self-care (01) | LOC: LAB.WCP 14:34 | PROVIDERS: ATTEND Physician Assistant | DX: N92.0 Excessive and frequent menstruation with regular cycle (principal) | CPT/HCPCS: 36415; 84702 ==

== ENCOUNTER 2019-08-08 08:00 | Outpatient (CLI) | payer OTHER ==
[2019-08-08 21:27] LABS: CANDIDA GROUP DNA NEGATIVE (NEGATIVE); CANDIDA KRUSEI DNA NEGATIVE (NEGATIVE); TRICHOMONAS VAGINALIS DNA NEGATIVE (NEGATIVE)
== END 2019-08-08 23:59 | disposition home or self-care (01) ==
LOC: LAB.R 08:00
PROVIDERS: ATTEND Physician Assistant Medical
DX: L29.8 Other pruritus (principal)
CPT/HCPCS: 87661; 87801

== ENCOUNTER 2019-12-12 08:00 | Outpatient (CLI) | payer MEDICAID, OTHER ==
[2019-12-12 13:17] LABS: BASOPHILS % (AUTO) 0.3 %; EOSINOPHILS # (AUTO) 0.1 10^3/uL (0.0-0.7); EOSINOPHILS % (AUTO) 1.6 %; HGB - HEMOGLOBIN 13.4 g/dL (12.0-16.0); LYMPHOCYTES # (AUTO) 2.1 10^3/uL (1.5-3.5); LYMPHOCYTES % (AUTO) 36.7 %; MEAN CORPUSCULAR HEMOGLOBIN 30.7 pg (27.0-31.0); MEAN CORPUSCULAR HGB CONC 32.8 g/dL (32.0-36.0); MEAN CORPUSCULAR VOLUME 93.6 fL (81.0-99.0); MEAN PLATELET VOLUME 10.9 fL (7.9-10.8); MONOCYTES # (AUTO) 0.4 10^3/uL (0.0-1.0); MONOCYTES % (AUTO) 7.3 %; NEUTROPHILS # (AUTO) 3.1 10^3/uL (1.5-6.6); NEUTROPHILS % (AUTO) 53.9 %; PLT - PLATELET COUNT 240 10^3/uL (130-450); RED BLOOD COUNT 4.36 10^6/uL (4.20-5.40); RED CELL DISTRIBUTION WIDTH 11.9 % (12.0-15.0); WHITE BLOOD COUNT 5.8 x10^3/uL (4.8-10.8)
[2019-12-12 13:43] LABS: ALBUMIN 4.5 g/dL (3.2-5.5); ALBUMIN/GLOBULIN RATIO 1.7 (1.0-2.2); BILIRUBIN,TOTAL 0.5 mg/dL (0.2-1.0); CALCIUM 9.2 mg/dL (8.5-10.3); CREATININE 0.5 mg/dL (0.4-1.0); TOTAL PROTEIN 7.1 g/dL (6.7-8.2)
== END 2019-12-12 23:59 | disposition home or self-care (01) ==
LOC: LAB.WCP 08:00
PROVIDERS: ATTEND Physician Assistant
DX: Z00.00 Encounter for general adult medical examination without abnormal findings (principal)
CPT/HCPCS: 36415; 80053; 84443; 85025

== ENCOUNTER 2019-12-22 13:08 | Outpatient (CLI) | payer MEDICAID | END 2019-12-22 13:09 | disposition home or self-care (01) | LOC: DI 13:08 | PROVIDERS: ATTEND Physician Assistant | DX: R07.89 Other chest pain (principal) | CPT/HCPCS: 93306 ==

== ENCOUNTER 2020-11-10 08:00 | Outpatient (CLI) | payer BC, MEDICAID ==
[2020-11-10 18:54] LABS: BASOPHILS % (AUTO) 0.4 %; EOSINOPHILS # (AUTO) 0.1 10^3/uL (0.0-0.7); EOSINOPHILS % (AUTO) 1.2 %; HGB - HEMOGLOBIN 13.4 g/dL (12.0-16.0); LYMPHOCYTES # (AUTO) 1.6 10^3/uL (1.5-3.5); LYMPHOCYTES % (AUTO) 22.4 %; MEAN CORPUSCULAR HEMOGLOBIN 30.9 pg (27.0-31.0); MEAN CORPUSCULAR HGB CONC 33.3 g/dL (32.0-36.0); MEAN CORPUSCULAR VOLUME 92.9 fL (81.0-99.0); MEAN PLATELET VOLUME 10.4 fL (7.9-10.8); MONOCYTES # (AUTO) 0.6 10^3/uL (0.0-1.0); MONOCYTES % (AUTO) 8.4 %; NEUTROPHILS # (AUTO) 4.7 10^3/uL (1.5-6.6); NEUTROPHILS % (AUTO) 67.5 %; PLT - PLATELET COUNT 237 10^3/uL (130-450); RED BLOOD COUNT 4.34 10^6/uL (4.20-5.40); WHITE BLOOD COUNT 6.9 x10^3/uL (4.8-10.8)
[2020-11-10 19:05] LABS: ALBUMIN 4.8 g/dL (3.2-5.5); ALBUMIN/GLOBULIN RATIO 1.5 (1.0-2.2); BILIRUBIN,TOTAL 0.5 mg/dL (0.2-1.0); CALCIUM 9.8 mg/dL (8.5-10.3); CREATININE 0.6 mg/dL (0.4-1.0); TOTAL PROTEIN 7.9 g/dL (6.7-8.2)
[2020-11-10 20:18] LABS: HEMOGLOBIN A1c% 4.8 % (4.27-6.07)
== END 2020-11-10 23:59 | disposition home or self-care (01) ==
LOC: LAB.WCP 08:00
PROVIDERS: ATTEND Physician Assistant
DX: Z00.00 Encounter for general adult medical examination without abnormal findings (principal)
CPT/HCPCS: 36415; 80053; 83036; 84443; 85025

== ENCOUNTER 2021-01-16 08:33 | Outpatient (CLI) | payer BC ==
--- NOTE | 2021-01-16 12:15 | Ultrasound Report ---
PROCEDURE: Abdomen Limited INDICATIONS: RUQ PAIN TECHNIQUE: Real-time focused scanning was performed of the abdomen, with image documentation. COMPARISON: 06/28/2018 FINDINGS: The liver is normal size and mildly diffusely hyperechoic and parenchymal echotexture, sim ilar compared to the prior study. No intra or extrahepatic biliary dilatation. The extrahepatic common duct measures 5.5 mm. The gallbladder is surgically absent. The pancreas appears normal. The right kidney measures 14.1 cm in length and there is no sonographic evidence of shadowing calculu s or hydronephrosis. No free fluid in the right upper quadrant. IMPRESSION: 1. Mild hepatic steatosis, stable. 2. Post cholecystectomy without significant biliary dilatation. Reviewed by: Bia Crane MD on 01/16/2021 12:14 PM PST Approved by: Bia Crane MD on 01/16/2021 12:14 PM PST Station ID: [id number]
== END 2021-01-16 08:34 | disposition home or self-care (01) ==
LOC: DI 08:33
PROVIDERS: ATTEND Physician Assistant
DX: R10.11 Right upper quadrant pain (principal); K76.0 Fatty (change of) liver, not elsewhere classified; Z90.49 Acquired absence of other specified parts of digestive tract